=== PATIENT | female | born 1950 | race Caucasian/White ===

== ENCOUNTER 2018-07-28 19:45 | Inpatient (IN) | payer MEDICARE, MEDICAID ==
[~2018-07-28] VITALS: Ht 160 cm; Wt 68.9 kg
[~2018-07-28 19:45] MED LIST: ALBU8.5H8 IH; BUDE10.2 IH; IBUP-76 PO; LEVO100T PO; METF500T6 PO; MULT-1168 PO; OLME1TAB16 PO
--- NOTE | 2018-07-28 20:01 | NUR ---
Dr. Henson at bedside for MSE.
[2018-07-28] MEDS ORDERED: HYDROCODONE/APAP 10-325 MG TABLET PO ONE (20:15)
[2018-07-28 20:21] LABS: BASOPHILS # (AUTO) 0.1 K/uL (0.0-8.0); BASOPHILS % (AUTO) 0.8 % (0.0-2.0); EOSINOPHILS # (AUTO) 0.8 K/uL (0.0-0.7); HEMATOCRIT 36.1 % (31.2-41.9); HEMOGLOBIN 11.7 g/dL (10.9-14.3); LYMPHOCYTES # (AUTO) 2.5 K/uL (20.0-40.0); LYMPHOCYTES % (AUTO) 27.5 % (20.5-51.5); MEAN CORPUSCULAR HEMOGLOBIN 26.2 uug (24.7-32.8); MEAN CORPUSCULAR HGB CONC 33 g/dL (32.3-35.6); MEAN CORPUSCULAR VOLUME 80.9 fL (75.5-95.3); MONOCYTES # (AUTO) 0.5 K/uL (2.0-10.0); MONOCYTES % (AUTO) 5.9 % (0.0-11.0); NEUTROPHILS # (AUTO) 5.1 K/uL (1.8-8.9); NEUTROPHILS % (AUTO) 56.8 % (38.5-71.5); PLATELET COUNT (AUTO) 346 K/uL (179-408); RED BLOOD CELL COUNT(AUTO) 4.47 MIL/uL (3.63-4.92)
[2018-07-28 20:31] LABS: CARBON DIOXIDE 29 mmol/L (21-32); CHLORIDE 105 mmol/L (98-107); CREATININE 0.9 mg/dL (0.6-1.3); GLUCOSE 116 mg/dL (74-106); POTASSIUM 3.6 mmol/L (3.5-5.1); UREA NITROGEN, BLOOD 26 mg/dL (7-18)
[2018-07-28] MEDS ORDERED: HYDROCODONE/APAP 10-325 MG TABLET ONE (20:31)
[2018-07-28 20:36] LABS: ETHANOL < 3 MG/DL (0-0)
[2018-07-28 20:37] LABS: ALANINE AMINOTRANSFERASE 24 U/L (14-59); ALKALINE PHOSPHATASE 80 U/L (50-136); ASPARTATE AMINOTRANSFERASE 12 U/L (15-37); BILIRUBIN,DIRECT 0.1 mg/dL (0.0-0.2); BILIRUBIN,TOTAL 0.2 mg/dL (0.2-1.0); TOTAL PROTEIN, SERUM 6.5 g/dL (6.4-8.2)
[2018-07-28 20:38] LABS: ACETAMINOPHEN < 2.0 ug/mL (10-30)
[2018-07-28] MEDS ORDERED: METF500T6 PO (20:49)
[2018-07-28] MEDS ORDERED: TEMA15CA5 PO (20:49)
[2018-07-28] MEDS ORDERED: ACET325T53 PO (20:49)
[2018-07-28] MEDS ORDERED: BLOO-140 IN (20:49)
[2018-07-28] MEDS ORDERED: FERR325T28 PO (20:49)
[2018-07-28] MEDS ORDERED: ATOR20TA PO (20:49)
[2018-07-28] MEDS ORDERED: HYDR-3980 PO (20:49)
[2018-07-28] MEDS ORDERED: ARIP5TAB10 PO (20:49)
[2018-07-28] MEDS ORDERED: IBUP-1955 PO (20:49)
[2018-07-28] MEDS ORDERED: TRAZ-182 PO (20:49)
[2018-07-28] MEDS ORDERED: OMEP40CA37 PO (20:49)
[2018-07-28] MEDS ORDERED: CLON1TAB PO (20:49)
[2018-07-28] MEDS ORDERED: SERT50TA12 PO (20:49)
[2018-07-28 20:58] LABS: THYROID STIMULATING HORMONE 0.376 mIU/mL (0.358-3.740)
--- NOTE | 2018-07-28 21:11 | NUR ---
Report given to Nicolas PEREZ [facility].
[2018-07-28 21:30] VITALS: BP 127/68
[2018-07-28] MEDS ORDERED: ACETAMINOPHEN 325 MG TABLET PO PRN (21:30)
[2018-07-28] MEDS ORDERED: LORAZEPAM 1 MG TABLET PO PRN (21:30)
[2018-07-28] MEDS ORDERED: MAG HYDROX/AL HYDROX/SIMETH 30 ML LIQUID UDC PO PRN (21:30)
[2018-07-28] MEDS ORDERED: MAGNESIUM HYDROXIDE 30 ML LIQUID UDC PO PRN (21:30)
--- NOTE | 2018-07-28 22:10 | NUR ---
GPS: Admitted to unit earlier a 67 yr.old female from [facility] on a 72 hour hold for GD. Pt.is under the care of /. Pt.is cooperative,hyperverbal,paranoid and delusional during admission process. Re-directed and re-assured by staff. Body assessment completed as well as her personal belongings list. Contracts for safety. Safety emphasized. Will continue to monitor. No resp.republican to notify per pt.
--- NOTE | 2018-07-28 22:15 | NUR ---
GPS: Pt.refused to accept her advisement when handed to her. Advisement paper placed in her chart instead.
[2018-07-28] MEDS: ZOLPIDEM 5 MG TABLET PO PRN (23:08)
[2018-07-29 07:30] VITALS: BP 118/61
--- NOTE | 2018-07-29 10:28 | NUR ---
Gps/Flange Turner- Patient very argumentative, needy,demanding behavior, claimed she needs her dilaudid for pain, and no one has been given her. Informed patient waiting for the medical Doctor to give order. Had ativan 1 mg po to help her anxiety. Refusing to take shower, claimed she does not want to sit in a bench/chair that other pt. had sat on. Threatening to jade the hospital, claimed for fraud . Informed patient we are here to help her, not listening to staff , claimed she already have papers filed. Difficulty redirecting patient, argues and disruptive , standing in front of the Nursing station threatening to jade everyone.Continue to monitor behavior.
[2018-07-29] MEDS: DIVALPROEX 250 MG TABLET.DR PO SCH ×3 (10:30→17:00)
[2018-07-29] MEDS: DULOXETINE 30 MG CAPSULE.DR PO SCH (10:51)
[2018-07-29] MEDS ORDERED: OLME1TAB16 PO (12:05)
[2018-07-29] MEDS ORDERED: LEVO50TA8 PO (12:05)
[2018-07-29] MEDS ORDERED: ALBU8.5H8 IH (12:05)
[2018-07-29] MEDS: HYDROCODONE/APAP 10-325 MG TABLET PO PRN ×4 (12:43→23:54)
[2018-07-29] MEDS ORDERED: HOME MED MISCELLANEOUS PO SCH (12:45)
[2018-07-29] MEDS ORDERED: ALBUTEROL SULFATE 8 GM HFA.AER.AD IH PRN (12:45)
[2018-07-29] MEDS ORDERED: ALBUTEROL SULFATE 2.5 MG/3 ML NEBU NEB PRN (13:00)
[2018-07-29] MEDS: LEVOTHYROXINE SODIUM 50 MCG TABLET PO SCH (14:04)
[2018-07-29] MEDS: FERROUS SULFATE 325 MG TABEC PO SCH (14:04)
[2018-07-29] MEDS: HYDROCHLOROTHIAZIDE 12.5 MG CAPSULE PO SCH (14:05)
[2018-07-29] MEDS: PANTOPRAZOLE SODIUM 40 MG TABLET.DR PO SCH (14:05)
[2018-07-29] MEDS: LOSARTAN POTASSIUM 50 MG TABLET PO SCH (14:05)
--- NOTE | 2018-07-29 15:20 | NUR ---
Gps/Rn Endoscopy- Staying in the activity room , interacting with her peers patient appeared to be less needy .
[2018-07-29 15:31] VITALS: BP 123/70
--- NOTE | 2018-07-29 16:48 | NUR ---
Gps/Quiller Tender- Patient requesting to have her cymbalta at night instead of the day time ,so she can sleep better at night, told pt. will informed Psychiatrist.
--- NOTE | 2018-07-29 16:54 | NUR ---
Gps/Accounting Reconciliation Clerk- Dr Pandya in this pm and saw patient.
[2018-07-29] MEDS: METFORMIN HCL 500 MG TABLET PO SCH (17:23)
--- NOTE | 2018-07-29 17:51 | NUR ---
Gps/Purchasing Department Clerk- Patient needy behavior, complaining she didnt get what she wants for dinner, ,verbalized feelings of being upset , wants regular coffee, regular sugar, informed she is diabetic, claimed even she is diabetic she does not have restrictions , informed pt. will ask her PMD. to change her diet to regular diet, since she is not compliant with her diet.Patient loud ,argumentative ,demanding behavior, calling staff names, when needs not met right. Patient does not accept explanations and reasons, irritable.
--- NOTE | 2018-07-29 18:15 | NUR ---
Gps/Hand Spray Operator- Patient came in to the Nurses station reminding her Nurse she is due for her pain medications , informed patient that her [place] is not routine, it is q 6 hours if she needed for pain, patient stated" i am always in pain , so you can give it to me when its due, i take dilaudid in the past just to let you know". Difficulty redirecting patient, argumentative behavior.
[2018-07-29] MEDS: ATORVASTATIN 20 MG TABLET PO SCH (21:11)
[2018-07-29] MEDS: ZOLPIDEM 5 MG TABLET PO PRN (21:16)
[2018-07-29 21:25] VITALS: BP 115/60
--- NOTE | 2018-07-29 23:30 | NUR ---
RECEIVED PATIENT IN ACTIVITY ROOM AND SHE WAS HYPERVERBAL TELLING STAFF ABOUT HER TITLE AND WHO SHE WAS.SHE WAS ARGUMENTATIVE AND DEMANDING.THREATENED TO CALL THE HEALTH DEPT TELLING THEM EVERYTHING HERE WAS ILLEGAL, AND DEMANDING TO BE WOKEN UP FOR HER NORCO EVEN WHEN IT WAS EXPLAINED THAT IT WAS FOR PRN USAGE. MARGYIEN WAS ALSO GIVEN AT HER REQUEST SINCE SHE SAYS SHE COULDN'T SLEEP.FREQUENT CHECKS MADE TO HER ROOM AND SHE WAS NOT IN ACUTE DISTRESS. WILL CONTINUE TO MONITOR.
[2018-07-30] MEDS: LEVOTHYROXINE SODIUM 50 MCG TABLET PO SCH (06:32)
[2018-07-30] MEDS: PANTOPRAZOLE SODIUM 40 MG TABLET.DR PO SCH (06:32)
--- NOTE | 2018-07-30 07:00 | NUR ---
SHE SLEPT INTERMITTENTLY FOR 5HRS. WOKE UP DEMANDING FOR HER NORCO. RE DIRECTED. WILL CONTINUE TO MONITOR.
[2018-07-30] MEDS: HYDROCODONE/APAP 10-325 MG TABLET PO PRN ×3 (07:06→19:30)
[2018-07-30 07:30] VITALS: BP 125/79
[2018-07-30] MEDS: HYDROCHLOROTHIAZIDE 12.5 MG CAPSULE PO SCH (08:54)
[2018-07-30] MEDS: LOSARTAN POTASSIUM 50 MG TABLET PO SCH (08:54)
[2018-07-30] MEDS: DULOXETINE 30 MG CAPSULE.DR PO SCH ×2 (08:54→09:00)
[2018-07-30] MEDS: METFORMIN HCL 500 MG TABLET PO SCH (08:55)
[2018-07-30] MEDS: FERROUS SULFATE 325 MG TABEC PO SCH (08:55)
[2018-07-30] MEDS: DIVALPROEX 250 MG TABLET.DR PO SCH (09:00)
[2018-07-30] MEDS ORDERED: CLONAZEPAM 0.5 MG TABLET PO PRN (09:30)
--- NOTE | 2018-07-30 11:30 | NUR ---
Gps/Sliver Lap Tender- Attending her group therapy, staying in the activity room , pain level tolerable, ambulates around with front wheel walker, to relieved putting pressure on her left foot per pt., encouraged elevating her foot, trace edema around the ankle area, pedal pulse +.
[2018-07-30 16:28] VITALS: BP 115/52
[2018-07-30 20:00] VITALS: BP 118/77
[2018-07-30] MEDS: ATORVASTATIN 20 MG TABLET PO SCH (20:24)
[2018-07-30] MEDS ORDERED: DULOXETINE 30 MG CAPSULE.DR PO SCH (21:00)
[2018-07-30] MEDS ORDERED: QUETIAPINE FUMARATE 25 MG TABLET PO SCH (21:00)
[2018-07-30] MEDS: ZOLPIDEM 5 MG TABLET PO PRN (22:17)
--- NOTE | 2018-07-30 23:05 | NUR ---
RECEIVED PATIENT IN ACTIVITY ROOM WHO LATER GOT UP TO PACE UP AND DOWN THE HALLWAY AND MAKING DEMANDS FOR A PAIN MEDS THEY WERE OVER DUE BY 5 MINUTES BY HER CALCULATION.VERY HYPERVERBAL AND MOVING FROM ONE TOPIC TO THE OTHER. SHE WAS ARGUMENTATIVE AND DEMANDING. SHE LATER REQUESTED FOR HER SLEEPING PILL AND AMBIEN GIVEN WITH FAIRLY GOOD EFFECT. FREQUENT CHECKS MADE TO HER ROOM AND SHE WAS NOT IN ACUTE DISTRESS. WILL CONTINUE TO MONITOR.
[2018-07-31] MEDS: HYDROCODONE/APAP 10-325 MG TABLET PO PRN ×2 (02:31→08:32)
[2018-07-31] MEDS: PANTOPRAZOLE SODIUM 40 MG TABLET.DR PO SCH (06:29)
[2018-07-31] MEDS: LEVOTHYROXINE SODIUM 50 MCG TABLET PO SCH (06:29)
--- NOTE | 2018-07-31 06:49 | NUR ---
SLEPT INTERMITTENTLY FOR 4;30 HRS. OCCASIONALLY WAKING TO GET HER NORCO AND OTHER TIMES COMPLIANING THE ROOMMATE IS EITHER SNORING OR TALKING SO SHE CANNOT SLEEP. REDIDECTED WITH FAIR RESULTS. TOOK HER MEDS THOUGH.
[2018-07-31 07:30] VITALS: BP 96/60
[2018-07-31 08:35] VITALS: BP 96/60
[2018-07-31] MEDS: LOSARTAN POTASSIUM 50 MG TABLET PO SCH (08:35)
[2018-07-31] MEDS: HYDROCHLOROTHIAZIDE 12.5 MG CAPSULE PO SCH (08:35)
--- NOTE | 2018-07-31 11:33 | NUR ---
AMA Discharge Note: Patient was evaluated by Dr. Lopez today, and does not meet criteria for 5250. Dr. Lopez encouraged pt to sign voluntary to stay in [facility], however, pt declined. Patient will be [facility] [place] [address]; [phone]] via ambulance. Spoke with MATILDA and Seth at the facility to alert them about patient's choice. Patient is still on a bedhold at the facility. Patient is requesting a different psychiatrist to follow her, and she has been assigned Dr. Romero at the facility as well as Dr. Pandya ([facility]).
--- NOTE | 2018-07-31 14:03 | NUR ---
Updated discharge note: Patient signed voluntary. Patient will be discharged to [facility] [[address] [place] [address] [place] [address]; [phone]] via ambulance. Spoke with Asha at the facility who states they are ready to accept the patient today. Patient is still on a bedhold at the facility. Patient is requesting a different psychiatrist to follow her, and she has been assigned Dr. Romero at the facility as well as Dr. Pandya ([facility]).
--- NOTE | 2018-07-31 14:09 | NUR ---
Patient is on voluntary status and being discharged back to [facility]. Pt is alert/oriented x 4, agreeable to be discharged to the facility. VS are stable. Pt is calm, no agitation. Discharge instructions are given, patient verbalizes understanding. All forms signed, all belongings returned. Report was called and given to CHRIS Barry.
== END 2018-07-31 14:30 | DRG 885 ==
LOC: ER 19:48 → GPS 21:14
PROVIDERS: ADMIT Psychiatry & Neurology Psychiatry; ATTEND Internal Medicine
DX: F31.64 Bipolar disorder, current episode mixed, severe, with psychotic features (principal); E03.9 Hypothyroidism, unspecified; M19.90 Unspecified osteoarthritis, unspecified site; Z80.3 Family history of malignant neoplasm of breast; D63.8 Anemia in other chronic diseases classified elsewhere; E11.9 Type 2 diabetes mellitus without complications; I10 Essential (primary) hypertension; E05.80 Other thyrotoxicosis without thyrotoxic crisis or storm; T38.1X5A Adverse effect of thyroid hormones and substitutes, initial encounter; Y92.129 Unspecified place in nursing home as the place of occurrence of the external cause; G89.4 Chronic pain syndrome; K21.9 Gastro-esophageal reflux disease without esophagitis; Z79.890 Hormone replacement therapy; Z90.710 Acquired absence of both cervix and uterus; I25.10 Atherosclerotic heart disease of native coronary artery without angina pectoris
CPT/HCPCS: 36415; 84443; 85025; 93005; A4663; G0480; G0480-TC; J3490